=== PATIENT | male | born 1950 ===

== ENCOUNTER 2019-09-10 09:38 | Inpatient (IN) | payer BC ==
[2019-09-10 10:03] LABS: ABS Eosinophils 0.3 10^3/ul (0-0.6); ABS Lymphocytes 1.3 10^3/ul (1.0-4.8); ABS Monocytes 0.7 10^3/ul (0-0.8); ABS Neutrophils 4.3 10^3/ul (1.5-7.7); Eosinophil % 4.6 %; Hematocrit 47 % (42-52); Hemoglobin 16.5 g/dL (14.0-18.0); Lymphocyte % 19.8 %; Mean Corpuscular HGB Conc 35 g/dL (31-36); Mean Corpuscular Hemoglobin 32 pg (27-31); Mean Corpuscular Volume 91 fL (80-94); Mean Platelet Volume 7.9 fL (7.4-10.4); Nucleated Red Blood Cells % 0.1; Platelet Count 275 10^3/uL (150-450); Red Blood Count 5.18 10^6 /uL (4.18-5.48); Red Cell Distribution Width 13 % (10-15); White Blood Count 6.7 10^3/uL (3.5-10.8)
[2019-09-10 10:18] LABS: Albumin 4.3 g/dL (3.2-5.2); Albumin/Globulin Ratio 1.3 (1-3); BUN/Creatinine Ratio 16.5 (8-20); Calcium 9.3 mg/dL (8.6-10.3); EGFR African American 100.6 (>60); EGFR Non-African American 83.1 (>60); Globulin 3.4 g/dL (2-4); Total Bilirubin 1.8 mg/dL (0.2-1.0); Total Protein 7.7 g/dL (6.4-8.9)
[2019-09-10 10:19] LABS: INR 0.98 (0.82-1.09)
[2019-09-10 10:20] LABS: Troponin I 0.01 ng/mL (<0.03)
[2019-09-10 10:54] LABS: C Reactive Protein 1.36 mg/L (<8.01)
--- NOTE | 2019-09-10 12:34 | ED ---
Palpitations / Dysrhythmia - HPI Summary HPI Summary: This patient is a 68 y/o male presenting to [facility] c/o fast heart rate today. Patient reports he was lying on the couch this morning when he got up to go to the bathroom and wash up. He notes he felt "weird" and took his pulse, which he describes as racing heart beat more than 140bpm. Patient states his resting heart rate is normally in the 60s. Patient reports he felt associated chest "fullness" but it resolved after he burped a couple of times. Denies associated fever, shortness of breath, abd pain, syncope, nausea, vomiting, diarrhea. Denies any chest pain currently. PMHx: anxiety, DM, HTN. 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 FHx: SVT, brother with atrial fibrillation. Home Medications Medication Instructions Recorded Confirmed Type Atorvastatin* [Lipitor 20 MG*] 20 mg PO QAM 09/21/17 09/21/17 History lisinopriL [Lisinopril] 20 mg PO QAM 09/21/17 09/21/17 History Metoprolol Succinate XL TAB* 25 mg PO DAILY 09/10/19 09/10/19 History [Toprol XL TAB*] - History of Current Complaint Chief Complaint: EDDysrhythmPalp Time Seen by Provider: 09/10/19 12:04 Hx Obtained From: Patient Onset/Duration: Lasting Hours Severity Initially: Moderate Character: Fast Aggravating: Nothing Alleviating: Nothing Associated Signs & Symptoms: Chest Pain - Allergy/Home Medications Allergies/Adverse Reactions: Allergies Allergy/AdvReac Type Severity Reaction Status Date / Time No Known Allergies Allergy Verified 09/10/19 09:41 Home Medications: Home Medications Atorvastatin* [Lipitor 20 MG*] 20 mg PO DAILY 09/21/17 [History Confirmed ] lisinopriL [Lisinopril] 20 mg PO DAILY 09/21/17 [History Confirmed 09/10/19] Metoprolol Succinate XL TAB* [Toprol XL TAB*] 25 mg PO DAILY 09/10/19 [History Confirmed 09/10/19] PMH/Surg Hx/FS Hx/Imm Hx Endocrine/Hematology History: Reports: Hx Diabetes - PRE DIABETIC Denies: Hx Thyroid Disease Cardiovascular History: Reports: Hx Cardiomegaly - SINCE BEING A TEEN, Hx Hypertension - ON MEDS, Other Cardiovascular Problems/Disorders - "BENIGN HEART BEAT" Denies: Hx Peripheral Vascular Disease Respiratory History: Denies: Hx Asthma GI History: Denies: Other GI Disorders History: Reports: Hx Kidney Stones - CURRENTLY, Hx Renal Disease Musculoskeletal History: Denies: Hx Arthritis, Hx Osteoporosis, Hx Scoliosis Sensory History: Reports: Hx Contacts or Glasses - GLASSES Denies: Hx Cataracts, Hx Glaucoma, Hx Hearing Aid Opthamlomology History: Reports: Hx Contacts or Glasses - GLASSES Denies: Hx Cataracts, Hx Glaucoma Neurological History: Denies: Hx Headaches, Hx Seizures, Hx Transient Ischemic Attacks (TIA), Other Neuro Impairments/Disorders Psychiatric History: Reports: Hx Anxiety - NO MEDS - Surgical History Surgery Procedure, Year, and Place: [place], [place] [facility] [facility] [facility] [place] 1993, [place] [facility] [place]x Anesthesia Reactions: No Infectious Disease History: No Infectious Disease History: Denies: Traveled Outside the [place] in Last 30 Days - Family History Known Family History: Positive: Cardiac Disease Family History: SVT. Brother with afib. - Social History Alcohol Use: Rare Substance Use Type: Reports: None Smoking Status (MU): Never Smoked Tobacco Review of Systems Negative: Fever Positive: Palpitations, Chest Pain Negative: Shortness Of Breath Gastrointestinal: Other - POSITIVE: burping Negative: Abdominal Pain, Vomiting, Diarrhea, Nausea Negative: Syncope All Other Systems Reviewed And Are Negative: Yes Physical Exam - Summary Physical Exam Summary: VITAL SIGNS: Reviewed. GENERAL: Patient is a well-developed and nourished male who is lying comfortable in the stretcher. Patient is not in any acute respiratory distress. HEAD AND FACE: No signs of trauma. No ecchymosis, hematomas or skull depressions. No sinus tenderness. EYES: PERRLA, EOMI x 2, No injected conjunctiva, no nystagmus. EARS: Hearing grossly intact. Ear canals and tympanic membranes are within normal limits. MOUTH: Oropharynx within normal limits. NECK: Supple, trachea is midline, no adenopathy, no JVD, no carotid bruit, no c- spine tenderness, neck with full ROM. CHEST: Symmetric, no tenderness at palpation LUNGS: Clear to auscultation bilaterally. No wheezing or crackles. CVS: Regular rate and rhythm, S1 and S2 present, no murmurs or gallops appreciated. ABDOMEN: Soft, non-tender. No signs of distention. No rebound, no guarding, and no masses palpated. Bowel sounds are normal. EXTREMITIES: FROM in all major joints, no edema, no cyanosis or clubbing. NEURO: Alert and oriented x 3. No acute neurological deficits. Speech is normal and follows commands. SKIN: Dry and warm Triage Information Reviewed: Yes Vital Signs On Initial Exam: Initial Vitals Temp Pulse Resp BP Pulse Ox 98.6 F 109 20 168/91 96 09/10/19 09:39 09/10/19 09:39 09/10/19 09:39 09/10/19 09:39 09/10/19 09:39 Vital Signs Reviewed: Yes Procedures - Sedation Patient Received Moderate/Deep Sedation with Procedure: No Diagnostics - Vital Signs Vital Signs Temp Pulse Resp BP Pulse Ox 09/10/19 11:45 98.8 F 115 16 197/78 95 09/10/19 09:39 98.6 F 109 20 168/91 96 - Laboratory Lab Results: Lab Results 09/10/19 09/10/19 09/10/19 Range/Units 09:46 09:46 09:46 WBC 6.7 (3.5-10.8) 10^3/uL RBC 5.18 (4.18-5.48) 10^6 /uL Hgb 16.5 (14.0-18.0) g/dL Hct 47 (42-52) % MCV 91 (80-94) fL MCH 32 H (27-31) pg MCHC 35 (31-36) g/dL RDW 13 (10-15) % Plt Count 275 (150-450) 10^3/uL MPV 7.9 (7.4-10.4) fL Neut % (Auto) 65.2 % Lymph % (Auto) 19.8 % Aiken % (Auto) 9.9 % Eos % (Auto) 4.6 % Baso % (Auto) 0.5 % Absolute Neuts (auto) 4.3 (1.5-7.7) 10^3/ul Absolute Lymphs (auto) 1.3 (1.0-4.8) 10^3/ul Absolute Monos (auto) 0.7 (0-0.8) 10^3/ul Absolute Eos (auto) 0.3 (0-0.6) 10^3/ul Absolute Basos (auto) 0.0 (0-0.2) 10^3/ul Absolute Nucleated RBC 0.0 10^3/ul Nucleated RBC % 0.1 INR (Anticoag Therapy) 0.98 (0.82-1.09) Sodium 136 (135-145) mmol/L Potassium 4.0 (3.5-5.0) mmol/L Chloride 104 (101-111) mmol/L Carbon Dioxide 25 (22-32) mmol/L Anion Gap 7 (2-11) mmol/L BUN 15 (6-24) mg/dL Creatinine 0.91 (0.67-1.17) mg/dL Est GFR ( Amer) 100.6 (>60) Est GFR (Non-Af Amer) 83.1 (>60) BUN/Creatinine Ratio 16.5 (8-20) Glucose 173 H (70-100) mg/dL Calcium 9.3 (8.6-10.3) mg/dL Total Bilirubin 1.80 H (0.2-1.0) mg/dL AST 29 (13-39) U/L ALT 47 (7-52) U/L Alkaline Phosphatase 67 (34-104) U/L Troponin I 0.01 (<0.03) ng/mL C-Reactive Protein 1.36 (<8.01) mg/L Total Protein 7.7 (6.4-8.9) g/dL Albumin 4.3 (3.2-5.2) g/dL Globulin 3.4 (2-4) g/dL Albumin/Globulin Ratio 1.3 (1-3) Result Diagrams: 09/10/19 09:46 09/10/19 09:46 Lab Statement: Any lab studies that have been ordered have been reviewed, and results considered in the medical decision making process. - Radiology Chest XR Radiology Interpretation Completed By: Radiologist Summary of Radiographic Findings: IMPRESSION: Eventrated right hemidiaphragm without evidence of active cardiopulmonary disease. Dr. Avendano has reviewed this report. - EKG 0943 Cardiac Rate: Tachycardia - at 104 bpm EKG Rhythm: Sinus Tachycardia Summary of EKG Findings: EKG at 0943 shows sinus tachycardia at a rate of [address] elevations. Q wave in aVF. This EKG was interpreted and reviewed by ED physician. Course/Dx - Course Assessment/Plan: This patient is a 68 y/o male presenting to [facility] c/o fast heart rate today. Patient reports he was lying on the couch this morning when he got up to go to the bathroom and wash up. He notes he felt "weird" and took his pulse, which he describes as racing heart beat more than 140bpm. Patient states his resting heart rate is normally in the 60s. Patient reports he felt associated chest "fullness" but it resolved after he burped a couple of times. Denies associated fever, shortness of breath, abd pain, syncope, nausea, vomiting, diarrhea. Denies any chest pain currently. PMHx: anxiety, DM, HTN. 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 FHx: SVT, brother with atrial fibrillation. In the ED course the patient was placed in a reimbursement rep, IV access was obtained, IV fluids started. Past medical records reviewed. Blood test w/o a significant abnormality except for glucose 173, total bili 1.8. The first troponin is 0.01. D-dimer is less than 200. Therefore, no suspicion for a PE. Chest x-ray impression: no evidence of active cardiopulmonary disease. Second troponin is 0.03. The patient was given metoprolol for his hypertension. Heart score is 5. I discussed my physical exam and test results with Dr. Trejo from the hospitalist services and she agrees to admit the patient to her services. The patient is hemodynamically stable, alert and oriented x 3. - Diagnoses Provider Diagnoses: Chest pain due to CAD, Elevated troponin - Physician Notifications Discussed Care Of Patient With: Rosita Trejo - hospitalist Time Discussed With Above Provider: 13:51 Instructed by Provider To: Admit As Inpatient Discharge ED - Sign-Out/Discharge Documenting (check all that apply): Patient Departure - Ad[place] to [facility] - Discharge Plan Condition: Stable Disposition: ADMITTED TO [facility] - Billing Disposition and Condition Condition: STABLE Disposition: Admitted to [facility] - Attestation Statements Document Initiated by Scribe: Yes Documenting Scribe: Savanna Trimble Provider For Whom Scribe is Documenting (Include Credential): Lobo Avendano MD Scribe Attestation: I, Savanna Trimble, scribed for Lobo Avendano MD on 09/10/19 at 205. Scribe Documentation Reviewed: Yes Provider Attestation: The documentation as recorded by the scribe, Savanna Trimble accurately reflects the service I personally performed and the decisions made by me, Lobo Avendano MD Status of Scribe Document: Viewed
[2019-09-10] MEDS ORDERED: Metoprolol Tartrate TAB* 50 mg PO ONE (13:14)
[2019-09-10 13:39] LABS: Troponin I 0.03 ng/mL (<0.03)
[2019-09-10 13:50] LABS: TSH (Thyroid Stimulating Horm) 0.74 mcIU/mL (0.34-5.60)
[2019-09-10 16:20] LABS: Troponin I 0.03 ng/mL (<0.03)
[2019-09-10] MEDS ORDERED: amLODIPine TAB* 5 MG PO PRN (17:13)
--- NOTE | 2019-09-10 17:27 | HP ---
History of Present Illness - History of Present Illness Reason for Visit: Heart racing History of Present Illness: Haider Bess is a 68 y/o male with history of Diabetes on diet control, hypertension on metoprolol and lisinopril, [place] [facility] onset of heart racing. He was lying on the couch this morning when he felt sudden onset of heart racing. He got up to bathroom and felt "not right" , he took his pulse , and feeling his racing heart rate more than 140bpm. It lasted about 5mins in total, he didn't lose consciousness, no fainting spell, he did describe "gassy feeling" in the chest and he felt better after burping a couple of times. He denied chest pain, chest pressure, SOB. He had no recent infection, and no recent travel. He had difficulty maintaining sleep which bothered him, he frequently wakes up at night for now reason, he denied gasping at night, denied PND sx. He hasn't done any sleep study yet, he is not seeing PCP quite often though he knows his bp not well controlled. In ED, he was found to have sinus tachycardia with HR 103 in EKG, with borderline AZ prolongation and Q waves in anterior leads. His symptoms were resolved when I saw him. He was noted to have high BP, highest up to 200. He was also found to have elevated troponin , first one 0.01, second and third one 0.03. Hospitalist team was called to admit him. - Past Medical History Past Medical History: 1. Poorly controlled Hypertension, BP at home 180-190/80-90mmhg sometimes. 2. Diabetes mellitus on diet control 3. Hyperlipidemia on atorvastatin - Past Surgical History Past Surgical History: 1. right kidney stone retrieval x2 2. right knee ligament surgery - Past Family History Past Family History: One brother has SVT, the other brother has atrial fibrillation. Otherwise no cardiac history in the family. 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 Staying in an apartment near his son's place, staying alone, . Ex-smoker, was a recreational smoker in the past, quit decades ago. Drinking up to 6 beers every week. No drug use. Would like full code. Medications: Home Medications Medication Instructions Recorded Confirmed Type Atorvastatin* [Lipitor 20 MG*] 20 mg PO DAILY 09/21/17 09/10/19 History lisinopriL [Lisinopril] 20 mg PO DAILY 09/21/17 09/10/19 History Metoprolol Succinate XL TAB* 25 mg PO DAILY 09/10/19 09/10/19 History [Toprol XL TAB*] Allergies/Adverse Reactions: Allergies Allergy/AdvReac Type Severity Reaction Status Date / Time No Known Allergies Allergy Verified 09/10/19 09:41 Review of Systems - Review of Systems Constitutional: Negative: Fever, Chills, Sweats, Weakness, Malaise, Other Eyes: Negative: Pain, Vision Change, Conjunctivae Inflammation, Eyelid Inflammation, Redness, Other ENT: Negative: Ear Pain, Ear Discharge, Nose Pain, Nose Discharge, Nose Congestion, Mouth Pain, Mouth Swelling, Throat Pain, Throat Swelling, Other Respiratory: Negative: Cough, Dry, Shortness of Breath, Hemoptysis, SOB with Excertion, Pleuritic Pain, Sputum, Wheezing Cardiovascular: Positive: Palpitations Gastrointestinal: Negative: Nausea, Vomiting, Abdominal Pain, Diarrhea, Constipation, Melena, Hematochezia, Other Genitourinary: Negative: Dysuria, Frequency, Incontinence, Hematuria, Retention , Other Musculoskeletal: Negative: Neck Pain, Shoulder Pain, Arm Pain, Back Pain, Hand Pain, Leg Pain, Foot Pain, Other Skin: Negative: Rash, Lesions, Castro, Bruising, Other Neurological/Mental Status: Negative: Weakness, Numbness, Incoordination, Change in Speech, Confusion, Seizures, Other Exam Vital Signs: Vital Signs (72 hours) 09/10/19 09/10/19 09/10/19 09:39 11:45 13:54 Temperature 98.6 F 98.8 F Pulse Rate 109 115 82 Respiratory 20 16 13 Rate Blood Pressure 168/91 197/78 (mmHg) O2 Sat by Pulse 96 95 97 Oximetry 09/10/19 09/10/19 09/10/19 13:59 14:01 14:33 Temperature Pulse Rate 90 83 73 Respiratory 10 13 21 Rate Blood Pressure 190/100 201/108 (mmHg) O2 Sat by Pulse 96 96 95 Oximetry 09/10/19 09/10/19 09/10/19 14:43 15:01 16:00 Temperature Pulse Rate 79 64 59 Respiratory 18 15 24 Rate Blood Pressure 206/108 (mmHg) O2 Sat by Pulse 96 95 96 Oximetry 09/10/19 16:12 Temperature Pulse Rate 66 Respiratory 17 Rate Blood Pressure 167/98 (mmHg) O2 Sat by Pulse 96 Oximetry Exam: Gen: obese habitus, lying in bed at 50 degress. HEENT: normacephalic and atraumatic Lungs: clear on auscultation Heart: S1/S2 heard with no murmur, distant due to body habitus Abdomen: Soft, nondistended and nontender. Normal BS heard Extremities: no cyanosis, no edema Neuro; Alert and oriented x4. Gross motor strength normal in all 4 limbs. Result Diagrams: 09/10/19 09:46 09/11/19 05:57 Additional Lab and Data: Lab Results 09/10/19 09/10/19 09/10/19 Range/Units 09:46 09:46 09:46 WBC 6.7 (3.5-10.8) 10^3/uL RBC 5.18 (4.18-5.48) 10^6 /uL Hgb 16.5 (14.0-18.0) g/dL Hct 47 (42-52) % MCV 91 (80-94) fL MCH 32 H (27-31) pg MCHC 35 (31-36) g/dL RDW 13 (10-15) % Plt Count 275 (150-450) 10^3/uL MPV 7.9 (7.4-10.4) fL Neut % (Auto) 65.2 % Lymph % (Auto) 19.8 % Davison % (Auto) 9.9 % Eos % (Auto) 4.6 % Baso % (Auto) 0.5 % Absolute Neuts (auto) 4.3 (1.5-7.7) 10^3/ul Absolute Lymphs (auto) 1.3 (1.0-4.8) 10^3/ul Absolute Monos (auto) 0.7 (0-0.8) 10^3/ul Absolute Eos (auto) 0.3 (0-0.6) 10^3/ul Absolute Basos (auto) 0.0 (0-0.2) 10^3/ul Absolute Nucleated RBC 0.0 10^3/ul Nucleated RBC % 0.1 INR (Anticoag Therapy) 0.98 (0.82-1.09) Sodium 136 (135-145) mmol/L Potassium 4.0 (3.5-5.0) mmol/L Chloride 104 (101-111) mmol/L Carbon Dioxide 25 (22-32) mmol/L Anion Gap 7 (2-11) mmol/L BUN 15 (6-24) mg/dL Creatinine 0.91 (0.67-1.17) mg/dL Est GFR ( Amer) 100.6 (>60) Est GFR (Non-Af Amer) 83.1 (>60) BUN/Creatinine Ratio 16.5 (8-20) Glucose 173 H (70-100) mg/dL Calcium 9.3 (8.6-10.3) mg/dL Total Bilirubin 1.80 H (0.2-1.0) mg/dL AST 29 (13-39) U/L ALT 47 (7-52) U/L Alkaline Phosphatase 67 (34-104) U/L Troponin I 0.01 (<0.03) ng/mL C-Reactive Protein 1.36 (<8.01) mg/L Total Protein 7.7 (6.4-8.9) g/dL Albumin 4.3 (3.2-5.2) g/dL Globulin 3.4 (2-4) g/dL Albumin/Globulin Ratio 1.3 (1-3) Diagnostic Imaging: CXR; clear. EKG Data: EKG: sinus tachy, HR 104, first degree heart block with AZ 220, Q wave in anterior leads V1-V3 and avf, minimal ST elevation V2-V3. Assessment/Plan - Assessment/Plan Assessment: Haider Bess is a 68 y/o male with history of hypertension, diabetes on diet control, hyperlipidemia, presented with palpitation, found to have sinus tachy, hypertension, and elevated trop. Plan: We are admitting the patient for overnight telemetry monitoring in view of his multiple cardio risk factors and elevated trop, as well as possible hypertensive urgency/emergency. 1. Palpitation - Sinus tachy in EKG, resolved on its own within minutes - cardiac risk factors including hypertension, DM, ex-smoker, obese, age - need to rule out ACS in view of multiple risk factors, though likely with absence of chest symptoms and mildly elevated trop - although it's most likely his elevated trop is related to his fast heart rate - trop trend 0.01->0.03->0.03, will trend one more set overnight - will do a TTE tomorrow to look for structural abnormalities - Stress test tomorrow to rule out ischemic causes 2. Hypertensive urgency vs emergency with background hypertension - BP in ED up to 201/108mmhg, poorly controlled at home as well - his palpitation and elevated trop may be hypertensive emergency - increase lisinopril to 20mg bid - add on amlodipine 5mg prn - keep old dose of metoproil due to 1st degree heart block 3. Diabetes - not on med - glucose monitoring - check A1c tomorrow 4.DVT prophylaxis - ambulatory, SCD when resting Attestation Documenting Resident: Elidia Henley Supervising Physician: Crescencio Hodge Attending/Supervising Physician Comment: 68 year old w/ multiple CAD risk factors, admitted w/ palpitations suggestive of A-fib or PSVT. Will observe on telemetry, have echo r/o structural HD, and ETT to assess for ischemia in AM. As outpatient may need event monitor, sleep study. Treating HTN urgency w/ additional VALENTINA and CCB. Attestation: This service has been performed in part by a resident under the direction of a teaching physician.I, Crescencio Hodge, performed the service, or was physically present during the critical, or mariano portions of the service, furnished by the resident. I participated in the management of the patient.
[2019-09-10] MEDS ORDERED: hydrALAZINE IV* 20 MG/ML VIAL IV SLOW PU PRN (18:45)
[2019-09-10] MEDS ORDERED: Acetaminophen TAB* 325 MG PO PRN (18:54)
[2019-09-10] MEDS: Lisinopril TAB* 10 MG PO SCH (21:20)
[2019-09-11 06:27] LABS: Albumin 3.8 g/dL (3.2-5.2); Albumin/Globulin Ratio 1.4 (1-3); BUN/Creatinine Ratio 20.3 (8-20); Calcium 8.9 mg/dL (8.6-10.3); EGFR African American 118.4 (>60); EGFR Non-African American 97.8 (>60); Globulin 2.8 g/dL (2-4); HDL Cholesterol 40.1 mg/dL; Potassium 4.1 mmol/L (3.5-5.0); Total Bilirubin 2.2 mg/dL (0.2-1.0); Total Protein 6.6 g/dL (6.4-8.9)
[2019-09-11] MEDS: Lisinopril TAB* 10 MG PO SCH (08:11)
[2019-09-11] MEDS ORDERED: Atorvastatin* 20 MG TAB PO SCH (09:00)
[2019-09-11] MEDS ORDERED: Influenza VAC *QUAD* 2019-20* 0.5 ML SYRINGE IM ONE (09:00)
[2019-09-11] MEDS ORDERED: Metoprolol Succinate XL TAB* 25 MG PO SCH (09:00)
[2019-09-11] MEDS ORDERED: amLODIPine TAB* 5 MG PO ONE (10:00)
[2019-09-11] MEDS ORDERED: Furosemide IV* 10 MG/ML 2 ML VIAL (20 MG) IV SLOW PU ONE (10:50)
--- NOTE | 2019-09-11 14:49 | ECHO ---
*[facility]* [place] [address] Fax #: [phone] Transthoracic Echocardiogram Patient: Haider Bess : 1950 Study Date: 09/11/2019 Age: 68 Gender: M HR: 92 bpm Height: 70 in /177.8 cm BSA: 2.6 m^2 Weight: 287.4 lb /130.6 kg BMI: 41.3 kg/m^2 *Weigher And Crusher: * Nayely Gasca [facility] *Referring Physician: * Elidia Henley *Reading Physician: * Hardik Damian MD Indications: Abnormal EKG. History: Risk factors: Former tobacco use. Hypertension. Diabetes mellitus. Obese. Dyslipidemia. Conclusions Summary: - Left ventricle: The cavity size is at the lower limits of normal. Wall thickness is mildly to moderately increased. Systolic function is normal. The estimated ejection fraction is 60-65%. Wall motion is normal; there are no regional wall motion abnormalities. - Right ventricle: Systolic function is normal. - Mitral valve: There is trace regurgitation. - Aortic valve: There is no evidence of stenosis. There is trace regurgitation. - Tricuspid valve: There is trace regurgitation. - Pulmonary arteries: Systolic pressure can not be accurately estimated. - Study data: No prior study is available for comparison. Study data: Transthoracic echocardiogram. Procedure: Transthoracic echocardiography was performed. Image quality was fair. The study was technically limited due to body habitus. Complete 2D, spectral Doppler, and color flow Doppler. Location: Bedside. Patient status: Inpatient. Patient room number: 443-02. No prior study is available for comparison. Rhythm: Heart block. Findings Left ventricle: The cavity size is at the lower limits of normal. Wall thickness is mildly to moderately increased. Systolic function is normal. The estimated ejection fraction is 60-65%. Wall motion is normal; there are no regional wall motion abnormalities. Doppler parameters are consistent with abnormal left ventricular relaxation (grade 1 diastolic dysfunction). Right ventricle: The cavity size is mildly dilated. Systolic function is normal. Left atrium: The atrium is mildly dilated. Right atrium: The atrium is normal in size. Mitral valve: The leaflets are mildly thickened. There is no evidence of stenosis. There is trace regurgitation. Aortic valve: Poorly visualized. The valve is trileaflet. The leaflets are mildly thickened. Thickening, consistent with sclerosis. There is no evidence of stenosis. There is trace regurgitation. Tricuspid valve: The leaflets are normal thickness. There is no evidence of stenosis. There is trace regurgitation. Pulmonic valve: The leaflets are normal thickness. There is no evidence of stenosis. There is trace regurgitation. Aorta: Aortic root: The aortic root is appears normal. Ascending aorta: The ascending aorta is mildly dilated. Aortic arch: The aortic arch is appears normal. Pericardium: A prominent pericardial fat pad is present. There is no significant pericardial effusion. Pulmonary arteries: The main pulmonary artery is normal-sized. Systolic pressure can not be accurately estimated. Systemic veins: Inferior vena cava: The vessel is normal in size. There is (>= 50%) respiratory change in the IVC dimension. Measurements Left ventricle Value Ref Right atrium continued Value Ref RAH, LAX (L) 4.0 cm 4.2 - ML dim, ES, A4C 3.9 cm 2.6 - 4.4 5.8 Estimated RAP 3 mm Hg --------- ESD, LAX 3.2 cm 2.5 - 4.0 Aortic valve Value Ref FS, LAX (L) 20 % 25 - 43 Jovita diam, S 2.3 cm 2.0 - 3.2 PW, ED, LAX (H) 1.3 cm 0.6 - Jovita diam/bsa, S (L) 0.9 cm/m^2 1.1 - 1.5 1.0 Peak v, S 2.97 m/sec --------- FS (L) 20 % 25 - 43 VTI, S 27.4 cm --------- Mid-wall FS 8 % -------- Mean grad, S 8.0 mm Hg --------- PW, ED (H) 1.3 cm 0.6 - Peak grad, S 15.0 mm Hg --------- 1.0 LVOT/AV, VTI ratio 0.74 --------- E', lat jovita, TDI (L) 5.0 cm/sec >=10.0 E/e', lat jovita, TDI 10 -------- Mitral valve Value Ref E', med jovita, TDI (L) 5.0 cm/sec >=7.0 Peak E 0.51 m/sec - -------- E/e', med jovita, TDI 10 -------- Peak A 0.89 m/sec ---- ----- E', avg, TDI 5.0 cm/sec -------- Decel time 174 ms ---- ----- E/e', avg, TDI 10 <=14 Peak E/A ratio 0.57 - -------- LVOT Value Ref Pulmonic valve Value Ref Peak sherry, S 1.31 m/sec -------- Peak v, S 1.31 m/sec --------- VTI, S 20.4 cm -------- Peak grad, S 6.9 mm Hg --------- Peak grad, S 7 mm Hg -------- Mean grad, S 4 mm Hg -------- Aortic root Value Ref Root diam 3.3 cm <4.6 Ventricular septum Value Ref IVS, ED (H) 1.3 cm 0.6 - Ascending aorta Value Ref 1.0 AAo AP diam, S 3.9 cm --------- Right ventricle Value Ref Aortic arch Value Ref RAH, LAX 3.4 cm -------- Arch diam 2.2 cm --------- RAH minor ax, A4C (H) 3.7 cm 1.9 - mid 3.5 Decending aorta Value Ref Roberto peak sherry 1.14 m/sec --------- Left atrium Value Ref LA ID 4.3 cm -------- Inferior vena cava Value Ref ML dim, A4C 3.9 cm -------- Diam 1.8 cm --------- SI dim, A4C 5.0 cm -------- Vol, ES, 2-p 78 ml -------- Vol/bsa, ES, 2-p 30 ml/m^2 16 - 34 Right atrium Value Ref SI dim, ES 4.5 cm 3.4 - 5.3 Legend: (L) and (H) fabby values outside specified reference range. Prepared and electronically signed by Hardik Damian MD 09/11/2019 14:48
[2019-09-11 14:53] VITALS: BP 155/76
--- NOTE | 2019-09-11 16:00 | DS ---
Resident Discharge Summary Discharge Summary: Date of Admission: 09/10/19 Date of Discharge: 09/11/19 Admitting MD: Crescencio Hodge MD Attending MD: Crescencio Hodge MD Primary Care Physician: Michelle Jalloh MD Home Medications Medication Instructions Recorded Confirmed Type Atorvastatin* [Lipitor 20 MG*] 20 mg PO DAILY 09/21/17 09/10/19 History Lisinopril TAB* [Prinivil TAB 10 20 mg PO BID #0 tab 09/11/19 Rx MG*] Metoprolol Succinate XL TAB* 50 mg PO DAILY #30 tab.xl 09/11/19 Rx [Toprol XL TAB*] amLODIPine TAB* [Norvasc 5 mg TAB*] 10 mg PO DAILY #30 tab 09/11/19 Rx metFORMIN* [Glucophage 500 MG TAB 500 mg PO 0800,1700 #60 tab 09/11/19 Rx *] Disposition: Home Condition: Stable Primary Diagnosis: 1. Hypertensive urgency 2. Poorly controlled hypertension 3. Palpitations 4. Type 2 Diabetes Secondary Diagnosis: 1. Hyperlipidemia 2. Obesity Diagnostic Imaging: TTE: wall thickness of left ventricle is mildly or moderately enlarged, EF 55-60 %. No focal wall movement abnormality. No valve abnormality. Stress test: result pending on discharge, verbal results normal. Pertinent Laboratory Results: CBC: WBC 6.7, Hb 16.5, plt 275. BMP: Na 136, K 4.0, Cl 104, bicarb 25, creatinine 0.91. A1c 8.0% Hospital Course: Haider Bess is 68 y/o male with history of type 2 Diabetes on diet control, hypertension on metoprolol and lisinopril, [place] [facility] onset of sensation of heart racing. Please refer to H&P dated 09/10/2019 for more information. He had his BP up to 206/108mmhg, sinus tachycardia with HR up to 110 on admission. He was found to have elevated troponin, which was closely monitored and trended down during his stay. He had heart echo performed inpatient which showed increased wall thickness of left ventricle otherwise no regional wall movement abnormality. His stress test is also normal by verbal report. It's most likely that he is having hypertensive crisis which lead to his palpitations and elevated troponin. His antihypertensives were increased this admission, a new agent Novasc was added while his lisinopril maxed up to 40mg, his metoprol dose was also increased to 50mg. His blood pressure is 155/ 76 on discharge, he may need further monitoring and medication adjustment outpatient setting. In terms of diabetes, his A1c is 8%, his glucose is ranging 200-250 in hospital , metformin 500mg bid was added. This needs to be further monitored outpatient setting. On the day of discharge, he was feeling well, no more palpitation, no headache, no dizziness. BP 155/76, HR 97. 12-Point physical examination is normal. Above information conveyed to patient, and he is determined to make lifestyle modification and follow up with primary care. Follow Up Instructions: Follow up with primary care within 1 week. In case of an emergency or after clinic hours, please go to your nearest Emergency Department. You may also call the [facility] milling operator at . Attestation Documenting Resident: Elidia Henley Supervising Physician: Crescencio Hodge Attestation: This service has been performed in part by a resident under the direction of a teaching physician.I, Crescencio Hodge, performed the service, or was physically present during the critical, or mariano portions of the service, furnished by the resident. I participated in the management of the patient.
[2019-09-11] MEDS ORDERED: metFORMIN* 500 MG TAB PO SCH (17:00)
[2019-09-12] MEDS ORDERED: Metoprolol Succinate XL TAB* 50 MG PO SCH (09:00)
[2019-09-12] MEDS ORDERED: amLODIPine TAB* 5 MG PO SCH (09:00)
== END 2019-09-11 16:49 | disposition home or self-care (01) | DRG 199 ==
LOC: ED 09:38 → MEDTELE 16:48
PROVIDERS: ADMIT Internal Medicine; ATTEND Internal Medicine
PROC: 4A02XM4 Measurement of Cardiac Total Activity, External Approach (ICD-10-PCS; principal; 2019-09-11)
DX: I16.1 Hypertensive emergency (principal); Z68.41 Body mass index [BMI] 40.0-44.9, adult; I10 Essential (primary) hypertension; E11.9 Type 2 diabetes mellitus without complications; E78.5 Hyperlipidemia, unspecified; E66.9 Obesity, unspecified; R00.0 Tachycardia, unspecified; R79.89 Other specified abnormal findings of blood chemistry; F41.9 Anxiety disorder, unspecified; Z23 Encounter for immunization; Z79.899 Other long term (current) drug therapy; Z87.442 Personal history of urinary calculi; Z87.891 Personal history of nicotine dependence
CPT/HCPCS: 36415; 71046; 80053; 80061; 83036; 84443; 84484; 85025; 85379; 85610; 86140; 90686; 93005; 93017; 93306; 99284; A9270-GY; J1940